=== PATIENT | female | born 1970 | race Caucasian/White ===

== ENCOUNTER 2016-09-11 08:21 | Emergency (ER) ==
[2016-09-11] MEDS ORDERED: XYLOCAINE-MPF 1% 5 ML ONE (08:48)
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
[2016-09-11 10:30] VITALS: BP 111/71
--- NOTE | 2016-09-11 14:13 | Diag Imaging Result Document ---
PROCEDURE NAME: CERVICAL SPINE COMPLETE - 09/11/2016 PLAIN RADIOGRAPH OF THE CERVICAL SPINE, 5 VIEWS: COMPARISON: None available. FINDINGS: There has been prior anterior cervical fusion at C5-6. Metallic fusion hardware is in place. There is degenerative disk disease with loss of disk space height and small marginal osteophyte formation at C4-5 and C6-7. There is no evidence of fracture, subluxation, or intrinsic osseous lesion, otherwise. Surrounding soft tissues are grossly unremarkable. IMPRESSION: Degenerative and postsurgical changes as described but no definite acute osseous abnormality.
== END 2016-09-11 10:28 | disposition home or self-care (01) ==
LOC: P.ED 08:21
DX: S01.112A Laceration without foreign body of left eyelid and periocular area, initial encounter (principal); Y04.0XXA Assault by unarmed brawl or fight, initial encounter; M54.2 Cervicalgia; H57.12 Ocular pain, left eye; F32.9 Major depressive disorder, single episode, unspecified; F17.210 Nicotine dependence, cigarettes, uncomplicated; Z71.6 Tobacco abuse counseling; S05.12XA Contusion of eyeball and orbital tissues, left eye, initial encounter
CPT/HCPCS: 72050; 99283